=== PATIENT | female | born 1960 | race Caucasian/White ===

== ENCOUNTER 2019-08-27 14:35 | Outpatient (CLI) | payer BC ==
--- NOTE | 2019-08-27 17:23 | RAD ---
LEFT FOOT THREE VIEWS: 08/27/19 Comparison is made the 03/20/14 study. There is an oblique fracture of the proximal phalanx of the fifth toe, a new finding and it appears a cute. The remainder of the foot appears intact. The joints showed no acute change. IMPRESSION: Oblique fracture of the proximal phalanx of the fifth toe. POS: HOME
== END 2019-08-27 14:36 | disposition home or self-care (01) ==
LOC: BURRAD 14:35
PROVIDERS: ATTEND Family Medicine
DX: S99.922A Unspecified injury of left foot, initial encounter (principal); S92.512A Displaced fracture of proximal phalanx of left lesser toe(s), initial encounter for closed fracture

== ENCOUNTER 2020-05-14 17:22 | Emergency (ER) | payer BC ==
[2020-05-14] MEDS ORDERED: Ketorolac Tromethamine 30 MG/ML VIAL ONE (17:59)
== END 2020-05-14 17:58 | disposition home or self-care (01) ==
LOC: BURERS 17:22
DX: S20.212A Contusion of left front wall of thorax, initial encounter (principal); X50.1XXA Overexertion from prolonged static or awkward postures, initial encounter
CPT/HCPCS: 71046; 96372; J1885